=== PATIENT | male | born 1965 | race Two or more races ===

== ENCOUNTER 2017-08-06 19:38 | Emergency (ER) ==
[2017-08-06 19:43] VITALS: BP 123/67; TEMP 96.8; BMI 20.2
--- NOTE | 2017-08-06 19:56 | ED.PDOC ---
General ED Provider: Dr. BENEDICT KIM Chief Complaint: Hand Pain/Injury Stated Complaint: Patient came for the right hand pain, fish hook stuck on it, it is bleeding some Time Seen by Physician: 19:54 Mode of Arrival: Walk-In Information Source: Patient Nursing and Triage Documentation Reviewed and Agree: Yes Reviewed sepsis parameters & appropriate labs ordered?: Yes System Inflammatory Response Syndrome: Not Applicable Sepsis Protocol: For patient's 13 years and over: Temp is 96.8 and below OR 101 and greater Pulse >90 BPM Resp >20/minute Acutely Altered Mental Status Are patient's symptoms suggestive of a new infection, such as: -Pneumonia -Skin, Soft Tissue -Endocarditis -UTI -Bone, Joint Infection -Implantable Device -Acute Abdominal Infection -Wound Infection -Meningitis -Blood Stream Catheter Infection -Unknown Skin Complaint Exam - Skin/Soft Tissue Complaint/Exam Symptoms Are: Still present (fish hook stuck on hand.) Timing: Constant Initial Severity: Mild Current Severity: Mild Character: Reports: Redness, Swelling, Raised, Painful Aggravating: Reports: Touch Alleviating: Reports: None Associated Signs and Symptoms: Reports: Tenderness. Denies: Fever, Chills, Itching, Drainage, Bruising, Red streaks, Joint swelling Related Surgical History: Reports: None Recent Exposure to Others w/Similar Symptoms: No Skin Findings: Present: Erythema. Absent: Induration, Fluctuant mass Differential Diagnoses: Other (fish hook) Review of Systems - Review Of Systems Constitutional: Reports: No symptoms Eyes: Reports: No symptoms Ears, Nose, Mouth, Throat: Reports: No symptoms Respiratory: Reports: No symptoms Cardiac: Reports: No symptoms GI: Reports: No symptoms : Reports: No symptoms Musculoskeletal: Reports: No symptoms Skin: Reports: No symptoms Neurological: Reports: No symptoms Endocrine: Reports: No symptoms Hematologic/Lymphatic: Reports: No symptoms All Other Systems: Reviewed and Negative Past Medical History - Past Medical History Previously Healthy: Yes Endocrine: Reports: None Cardiovascular: Reports: None Respiratory: Reports: None Hematological: Reports: None Gastrointestinal: Reports: None Genitourinary: Reports: None Neuro/Psych: Reports: None Musculoskeletal: Reports: None Cancer: Reports: None - Surgical History General Surgical History: Reports: None - Family History Family History: Reports: None - Social History Smoking Status: Current every day smoker, Heavy tobacco smoker Smoking Cessation Counseling Time: > 10 min Hx Substance Use: No Alcohol Screening: None - Immunizations Tetanus Shot up to Date: No Physical Exam - Physical Exam Appearance: Well-appearing, No pain distress, Well-nourished Eyes: LADI, EOMI, Conjunctiva clear ENT: Ears normal, Nose normal, Oropharynx normal Respiratory: Airway patent, Breath sounds clear, Breath sounds equal, Respirations nonlabored Cardiovascular: RRR, Pulses normal, No rub, No murmur GI/: Soft, Nontender, No masses, Bowel sounds normal, No Organomegaly Musculoskeletal: Normal strength, ROM intact, No edema, No calf tenderness Skin: Warm, Dry, Normal color Neurological: Sensation intact, Motor intact, Reflexes intact, Cranial nerves intact, Alert, Oriented Psychiatric: Affect appropriate, Mood appropriate Procedures - Foreign Body Removal Location of Foreign Object: right hand dorsum, Foreign Object: fish hook. Depth of Object: pierced Prep: Saline, Betadine Irrigation: No Skin Incised: No Instruments Used: Yes: Other (cutter) Foreign Body Identified and Removed: Yes Critical Care Note - Critical Care Note Total Time (mins): 30 Course - Course Vital Signs: Temp Pulse Resp BP Pulse Ox 08/06/17 19:39 96.8 F L 106 H 18 123/67 98 Departure - Departure Time of Disposition: 19:57 Disposition: HOME SELF-CARE Discharge Problem: Fish hook injury of hand Qualifiers: Encounter type: initial encounter Laterality: right Qualified Code(s): S69.91XA - Unspecified injury of right wrist, hand and finger(s), initial encounter Instructions: Soft Tissue Foreign Body (ED) Condition: Stable Pt referred to PMD for follow-up: Yes IPMP verified?: No Additional Instructions: skin hygiene Tylenol prn f/u with PMD in 3-4 days Prescriptions: Cephalexin [Keflex] 500 mg PO Q12HR #14 capsule Allergies/Adverse Reactions: Allergies No Known Allergies Allergy (Unverified 08/06/17 19:42) Home Medications: Ambulatory Orders Cephalexin [Keflex] 500 mg PO Q12HR #14 capsule 08/06/17 Disposition Discussed With: Patient, Family
[2017-08-06] MEDS ORDERED: BOOSTRIX IM ONE (19:59)
== END 2017-08-06 20:05 | disposition home or self-care (01) ==
LOC: ED 19:38
DX: S61.441A Puncture wound with foreign body of right hand, initial encounter (principal); W45.8XXA Other foreign body or object entering through skin, initial encounter; F17.210 Nicotine dependence, cigarettes, uncomplicated
CPT/HCPCS: 90471; 90715; 99283